=== PATIENT | female | born 1955 | race Caucasian/White ===

== ENCOUNTER → 2018-03-12 | Outpatient (CLI) | payer OTHER ==
--- NOTE | 2018-03-12 15:00 | 2DMMODE ---
[place] [address] 2 D/M-MODE ECHOCARDIOGRAM Name: DUGLAS GREER Room: [facility]#: [id number] Admission: 03/12/18 Attend Phys: Lorenza JONES Solorio Discharge: Date of : 55 Date of Service: 03/12/18 1500 Report #: [id number] THIS REPORT FOR: //name// APPROVED REPORT Study performed: 03/12/2018 13:53:53 EXAM: Comprehensive 2D, Doppler, and color-flow Echocardiogram Patient Location: Out-Patient Status: routine BSA: 1.70 HR: 68 bpm BP: 130/82 mmHg Other Information Study Quality: Good Indications Palpitations 2D Dimensions LVEF(%): 65.55 (>50%) IVSd: 10.42 (7-11mm) LVOT Diam: 20.66 (18-24mm) LVDd: 44.34 mm PWd: 9.28 (7-11mm) Ascending Ao: 30.93 (22-36mm) LVDs: 28.46 (25-40mm) Aortic Root: 29.78 mm Rivera's LVEF: 65.55 % Volumes Left Atrial Volume (Systole) LA ESV Index: 19.70 mL/m2 Aortic Valve AoV Peak Bubba.: 1.50 m/s AO Peak Gr.: 9.04 mmHg LVOT Max P.79 mmHg AO Mean Gr.: 5.29 mmHg LVOT Mean P.39 mmHg LVOT Max V: 1.20 m/s AO V2 VTI: 32.17 cm LVOT Mean V: 0.69 m/s SUNITA (VTI): 2.31 cm2 LVOT V1 VTI: 22.21 cm AI Cataño: 2.81 m/s2 AI PHT: 469.85 [place] [address] 2 D/M-MODE ECHOCARDIOGRAM Name: DUGLAS GREER Room: [facility]#: [id number] Admission: 03/12/18 Attend Phys: Lorenza JONES Solorio Discharge: Date of : 55 Date of Service: 03/12/18 1500 Report #: [id number] E/A Ratio: 0.98 MV Decel. Time: 209.27 ms MV E Max Bubba.: 0.57 m/s MV PHT: 60.69 ms MVA (PHT): 3.63 cm2 TDI E/Lateral E': 5.18 E/Medial E': 7.13 Medial E' Bubba.: 0.08 m/s Lateral E' Bubba.: 0.11 m/s Pulmonary Valve PV Peak Bubba.: 0.96 m/s PV Peak Gr.: 3.71 mmHg Tricuspid Valve TR Peak Gr.: 22.72 mmHg RVSP: 27.72 mmHg Left Ventricle The left ventricle is normal size. There is normal LV segmental wall motion. There is normal left ventricular wall thickness. Left ventricular systolic function is normal. The left ventricular ejection fraction is within the normal range. LVEF is 55-60%. The left ventricular diastolic function is normal. Right Ventricle The right ventricle is normal size. The right ventricular systolic function is normal. Atria The left atrium size is normal. The right atrium size is normal. Aortic Valve The aortic valve is normal in structure. Mild to moderate aortic regurgitation. There is no aortic valvular stenosis. Mitral Valve The mitral valve is normal in structure. There is no mitral valve regurgitation noted. No evidence of mitral valve stenosis. Tricuspid Valve The tricuspid valve is normal in structure. Mild tricuspid regurgitation. Pulmonic Valve The pulmonary valve is normal in structure[place] [address] 2 D/M-MODE ECHOCARDIOGRAM Name: DUGLAS GREER Room: [facility]#: [id number] Admission: 03/12/18 Attend Phys: Lorenza JONES Solorio Discharge: Date of : 55 Date of Service: 03/12/18 1500 Report #: [id number] regurgitation. Great Vessels The aortic root is normal in size. IVC is normal in size and collapses with >50% inspiration Pericardium There is no pericardial effusion. <Conclusion> The left ventricle is normal size. There is normal left ventricular wall thickness. LVEF is 55-60%. There is normal LV segmental wall motion. There is no aortic valvular stenosis. Mild to moderate aortic regurgitation. Mild tricuspid regurgitation. Mild pulmonic regurgitation. <ELECTRONICALLY SIGNED> By: Panfilo Hobbs MD, FACC 03/12/18 1500 1500 1500 Panfilo Hobbs MD, FACC /INF
== END ==
LOC: M.CRD 13:29
DX: I08.2 Rheumatic disorders of both aortic and tricuspid valves (principal)

== ENCOUNTER → 2021-05-03 | Outpatient (CLI) | payer OTHER | LOC: M.RAD 11:50 | PROVIDERS: ATTEND Registered Nurse Diabetes Educator | DX: M25.812 Other specified joint disorders, left shoulder (principal); G89.29 Other chronic pain; M25.512 Pain in left shoulder ==